=== PATIENT | male | born 1990 | race Caucasian/White ===

== ENCOUNTER 2016-10-01 18:13 | Emergency (ER) | payer MEDICAID, OTHER ==
[~2016-10-01] VITALS: Ht 177.8 cm; Wt 75.0 kg
[2016-10-01 18:14] VITALS: BP 135/84; PULSE 102; RESP 20; TEMP 98.5; O2SAT 97
[2016-10-01] MEDS ORDERED: SODIUM CHLORID 0.9% 500 ML INJ 500 ML IV ONE (19:30)
[2016-10-01] MEDS ORDERED: SODIUM CHLORIDE 0.9% FLUSH 10 ML FLUSH IVF PRN (19:30)
--- NOTE | 2016-10-01 19:34 | PD ---
HPI Chief Complaint: Chest Pain Time Seen by Provider: 19:32 Travel History International Travel<30 days: No Contact w/Intl Traveler<30days: No Traveled to known affect area: No History of Present Illness HPI Patient is a 26-year-old male presenting to emergency department evaluation of chest pain. Patient states pain started 2 days ago, it's midsternal and is worse with deep inspiration. He states that he missed a dose of methadone yesterday and made the pain worse. He felt tired and occasionally short of breath. He denies any fever, chills, nausea, vomiting, abdominal pain. He states that he's been sleeping a lot as well. He does report a dry cough. [facility] Past Medical History Medical History: Denies Significant Hx Social History Alcohol Use: No Tobacco Use: Yes Substance Use: No Allergies-Medications (Allergen,Severity, Reaction): Coded Allergies: No Known Allergies (Unverified , 10/01/16) Review of Systems Except as stated in HPI: all other systems reviewed are Neg General / Constitutional: Positive: Other (fatigue) Cardiovascular: Positive: Chest Pain or Discomfort Respiratory: Positive: Cough, Shortness of Breath Physical Exam Narrative GENERAL: Well-developed, well-nourished male, resting comfortably in no acute distress SKIN: Focused skin assessment warm/dry. HEAD: Atraumatic. Normocephalic. EYES: Pupils equal and round. No scleral icterus. No injection or drainage. ENT: No nasal bleeding or discharge. Mucous membranes pink and moist. NECK: Trachea midline. No JVD. CARDIOVASCULAR: Regular rate and rhythm. No murmur appreciated. RESPIRATORY: No accessory muscle use. Clear to auscultation. Breath sounds equal bilaterally. GASTROINTESTINAL: Abdomen soft, non-tender, nondistended. Hepatic and splenic margins not palpable. MUSCULOSKELETAL: No obvious deformities. No clubbing. No cyanosis. No edema. NEUROLOGICAL: Awake and alert. No obvious cranial nerve deficits. Motor grossly within normal limits. Normal speech. PSYCHIATRIC: Appropriate mood and affect; insight and judgment normal. Data Data Last Documented VS Vital Signs Date Time Temp Pulse Resp B/P Pulse Ox O2 Delivery O2 Flow Rate FiO2 10/01/16 20:06 Room Air 10/01/16 20:06 99 10/01/16 18:14 98.5 102 20 135/84 Orders Electrocardiogram (10/01/16 19:24) Ckmb (Isoenzyme) Profile (10/01/16 19:24) Complete Blood Count With Diff (10/01/16 19:24) Comprehensive Metabolic Panel (10/01/16 19:24) Magnesium (Mg) (10/01/16 19:24) Prothrombin Time / Inr (Pt) (10/01/16 19:24) Act Partial Throm Time (Ptt) (10/01/16 19:24) Troponin I (10/01/16 19:24) Chest, Single Ap (10/01/16 19:24) Ecg Monitoring (10/01/16 19:24) Iv Access Insert/Monitor (10/01/16 19:24) Oximetry (10/01/16 19:24) Sodium Chloride 0.9% Flush (Ns Flush) (10/01/16 19:30) Sodium Chlorid 0.9% 500 Ml Inj (Ns 500 M (10/01/16 19:30) D-Dimer (10/01/16 19:34) CKMB (10/01/16 19:35) CKMB% (10/01/16 19:35) Labs Laboratory Tests Test 10/01/16 19:35 White Blood Count 7.1 TH/MM3 Red Blood Count 4.94 MIL/MM3 Hemoglobin 14.4 GM/DL Hematocrit 41.7 % Mean Corpuscular Volume 84.5 FL Mean Corpuscular Hemoglobin 29.1 PG Mean Corpuscular Hemoglobin 34.4 % Concent Red Cell Distribution Width 12.8 % Platelet Count 220 TH/MM3 Mean Platelet Volume 7.7 FL Neutrophils (%) (Auto) 63.7 % Lymphocytes (%) (Auto) 25.3 % Monocytes (%) (Auto) 5.7 % Eosinophils (%) (Auto) 4.9 % Basophils (%) (Auto) 0.4 % Neutrophils # (Auto) 4.5 TH/MM3 Lymphocytes # (Auto) 1.8 TH/MM3 Monocytes # (Auto) 0.4 TH/MM3 Eosinophils # (Auto) 0.3 TH/MM3 Basophils # (Auto) 0.0 TH/MM3 CBC Comment DIFF FINAL Differential Comment Prothrombin Time 11.0 SEC Prothromb Time International 1.0 RATIO Ratio Activated Partial 28.5 SEC Thromboplast Time Sodium Level 138 MEQ/L Potassium Level 4.0 MEQ/L Chloride Level 99 MEQ/L Carbon Dioxide Level 31.3 MEQ/L Anion Gap 8 MEQ/L Blood Urea Nitrogen 13 MG/DL Creatinine 0.87 MG/DL Estimat Glomerular Filtration 104 ML/MIN Rate Random Glucose 89 MG/DL Calcium Level 9.1 MG/DL Magnesium Level 2.1 MG/DL Total Bilirubin 0.5 MG/DL Aspartate Amino Transf 20 U/L (AST/SGOT) Alanine Aminotransferase 27 U/L (ALT/SGPT) Alkaline Phosphatase 93 U/L Total Creatine Kinase 136 U/L Troponin I 0.03 NG/ML Total Protein 8.1 GM/DL Albumin 4.0 GM/DL MDM Medical Decision Making Medical Screen Exam Complete: Yes Emergency Medical Condition: Yes Interpretation(s) Last Impressions Chest X-Ray 10/01/161923 Signed Impressions: Service Date/Time: Saturday, October 01, 2016 19:33 - CONCLUSION: No acute disease. Darrel Man Jr., MD Laboratory Tests Test 10/01/16 19:35 White Blood Count 7.1 TH/MM3 Red Blood Count 4.94 MIL/MM3 Hemoglobin 14.4 GM/DL Hematocrit 41.7 % Mean Corpuscular Volume 84.5 FL Mean Corpuscular Hemoglobin 29.1 PG Mean Corpuscular Hemoglobin 34.4 % Concent Red Cell Distribution Width 12.8 % Platelet Count 220 TH/MM3 Mean Platelet Volume 7.7 FL Neutrophils (%) (Auto) 63.7 % Lymphocytes (%) (Auto) 25.3 % Monocytes (%) (Auto) 5.7 % Eosinophils (%) (Auto) 4.9 % Basophils (%) (Auto) 0.4 % Neutrophils # (Auto) 4.5 TH/MM3 Lymphocytes # (Auto) 1.8 TH/MM3 Monocytes # (Auto) 0.4 TH/MM3 Eosinophils # (Auto) 0.3 TH/MM3 Basophils # (Auto) 0.0 TH/MM3 CBC Comment DIFF FINAL Differential Comment Prothrombin Time 11.0 SEC Prothromb Time International 1.0 RATIO Ratio Activated Partial 28.5 SEC Thromboplast Time Sodium Level 138 MEQ/L Potassium Level 4.0 MEQ/L Chloride Level 99 MEQ/L Carbon Dioxide Level 31.3 MEQ/L Anion Gap 8 MEQ/L Blood Urea Nitrogen 13 MG/DL Creatinine 0.87 MG/DL Estimat Glomerular Filtration 104 ML/MIN Rate Random Glucose 89 MG/DL Calcium Level 9.1 MG/DL Magnesium Level 2.1 MG/DL Total Bilirubin 0.5 MG/DL Aspartate Amino Transf 20 U/L (AST/SGOT) Alanine Aminotransferase 27 U/L (ALT/SGPT) Alkaline Phosphatase 93 U/L Total Creatine Kinase 136 U/L Troponin I 0.03 NG/ML Total Protein 8.1 GM/DL Albumin 4.0 GM/DL Vital Signs Date Time Temp Pulse Resp B/P Pulse Ox O2 Delivery O2 Flow Rate FiO2 10/01/16 18:14 98.5 102 20 135/84 97 Room Air Differential Diagnosis Acute coronary syndrome versus substance abuse versus pleurisy versus pulmonary embolism versus other Narrative Course Patient is a 26-year-old male presenting to emergency evaluation of chest pain and tightness in 2 days ago. Patient initially did not admit to using any drugs , however the later admitted to using cocaine yesterday. EKG shows sinus bradycardia Chest x-ray shows no acute disease CBC is unremarkable Chemistry is unremarkable Troponin is 0.03 D-dimer is still pending. Care of patient transferred to my attending physician who will determine patient 's disposition. Bhumika Flynn October 01, 2016 19:34
--- NOTE | 2016-10-01 19:57 | RADRPT ---
EXAM DATE/TIME: 10/01/2016 19:33 [facility] COMPARISON: No previous studies available for comparison. INDICATIONS : Chest pain post cocaine usage. MEDICAL HISTORY : None. SURGICAL HISTORY : None. ENCOUNTER: Initial ACUITY: 2 days PAIN SCORE: 4/10 LOCATION: Bilateral chest FINDINGS: 2 frontal views of the chest demonstrate the lungs to be symmetrically aerated without evidence of ma ss, infiltrate or effusion. The cardiomediastinal contours are unremarkable. Osseous structures are intact. CONCLUSION: No acute disease. Darrel Man Jr., MD on October 01, 2016 at 19:55 Board Certified Radiologist. This report was verified electronically.
[2016-10-01 20:11] LABS: AUTOMATED NEUTROPHIL # 4.5 TH/MM3 (1.8-7.7); BASOPHIL % 0.4 % (0.0-2.0); EOSINOPHIL # 0.3 TH/MM3 (0-0.4); EOSINOPHIL % 4.9 % (0.0-4.0); HEMATOCRIT 41.7 % (39.0-51.0); HEMO FLAGS DIFF FINAL; LYMPH % 25.3 % (9.0-44.0); LYMPHOCYTE # 1.8 TH/MM3 (1.0-4.8); MEAN CELL VOLUME 84.5 FL (80.0-100.0); MEAN CORPUSCULAR HEMOGLOBIN 29.1 PG (27.0-34.0); MEAN CORPUSCULAR HGB CONC 34.4 % (32.0-36.0); MONO % 5.7 % (0.0-8.0); NEUT % 63.7 % (16.0-70.0); PLATELET COUNT 220 TH/MM3 (150-450); RED BLOOD COUNT 4.94 MIL/MM3 (4.50-5.90); RED CELL DISTRIBUTION WIDTH 12.8 % (11.6-17.2); WHITE BLOOD COUNT 7.1 TH/MM3 (4.0-11.0)
[2016-10-01 20:21] LABS: APTT (PATIENT) 28.5 SEC (24.3-30.1)
[2016-10-01 20:36] LABS: ANION GAP 8 MEQ/L (5-15); AST (GOT) 20 U/L (15-37); BICARBONATE 31.3 MEQ/L (21.0-32.0); BLOOD UREA NITROGEN 13 MG/DL (7-18); CHLORIDE 99 MEQ/L (98-107); GLOMERULAR FILTRATION RATE 104 ML/MIN (>89); MAGNESIUM 2.1 MG/DL (1.5-2.5); SODIUM (NA) 138 MEQ/L (136-145)
[2016-10-01 20:41] LABS: ALKALINE PHOSPHATASE 93 U/L (45-117); ALT (GPT) 27 U/L (12-78); CREATINE KINASE 136 U/L (39-308); TOTAL BILIRUBIN ADULT 0.5 MG/DL (0.2-1.0)
[2016-10-01 20:53] LABS: CKMB 2.1 NG/ML (0.5-3.6)
--- NOTE | 2016-10-01 20:56 | PD ---
Data Data Last Documented VS Vital Signs Date Time Temp Pulse Resp B/P Pulse Ox O2 Delivery O2 Flow Rate FiO2 10/01/16 21:52 98.3 96 20 128/74 99 Room Air Orders Electrocardiogram (10/01/16 19:24) Ckmb (Isoenzyme) Profile (10/01/16 19:24) Complete Blood Count With Diff (10/01/16 19:24) Comprehensive Metabolic Panel (10/01/16 19:24) Magnesium (Mg) (10/01/16 19:24) Prothrombin Time / Inr (Pt) (10/01/16 19:24) Act Partial Throm Time (Ptt) (10/01/16 19:24) Troponin I (10/01/16 19:24) Chest, Single Ap (10/01/16 19:24) Ecg Monitoring (10/01/16 19:24) Iv Access Insert/Monitor (10/01/16 19:24) Oximetry (10/01/16 19:24) Sodium Chloride 0.9% Flush (Ns Flush) (10/01/16 19:30) Sodium Chlorid 0.9% 500 Ml Inj (Ns 500 M (10/01/16 19:30) D-Dimer (10/01/16 19:34) CKMB (10/01/16 19:35) CKMB% (10/01/16 19:35) Labs Laboratory Tests Test 10/01/16 19:35 White Blood Count 7.1 TH/MM3 Red Blood Count 4.94 MIL/MM3 Hemoglobin 14.4 GM/DL Hematocrit 41.7 % Mean Corpuscular Volume 84.5 FL Mean Corpuscular Hemoglobin 29.1 PG Mean Corpuscular Hemoglobin 34.4 % Concent Red Cell Distribution Width 12.8 % Platelet Count 220 TH/MM3 Mean Platelet Volume 7.7 FL Neutrophils (%) (Auto) 63.7 % Lymphocytes (%) (Auto) 25.3 % Monocytes (%) (Auto) 5.7 % Eosinophils (%) (Auto) 4.9 % Basophils (%) (Auto) 0.4 % Neutrophils # (Auto) 4.5 TH/MM3 Lymphocytes # (Auto) 1.8 TH/MM3 Monocytes # (Auto) 0.4 TH/MM3 Eosinophils # (Auto) 0.3 TH/MM3 Basophils # (Auto) 0.0 TH/MM3 CBC Comment DIFF FINAL Differential Comment Prothrombin Time 11.0 SEC Prothromb Time International 1.0 RATIO Ratio Activated Partial 28.5 SEC Thromboplast Time D-Dimer Quantitative (PE/DVT) 0.22 MG/L FEU Sodium Level 138 MEQ/L Potassium Level 4.0 MEQ/L Chloride Level 99 MEQ/L Carbon Dioxide Level 31.3 MEQ/L Anion Gap 8 MEQ/L Blood Urea Nitrogen 13 MG/DL Creatinine 0.87 MG/DL Estimat Glomerular Filtration 104 ML/MIN Rate Random Glucose 89 MG/DL Calcium Level 9.1 MG/DL Magnesium Level 2.1 MG/DL Total Bilirubin 0.5 MG/DL Aspartate Amino Transf 20 U/L (AST/SGOT) Alanine Aminotransferase 27 U/L (ALT/SGPT) Alkaline Phosphatase 93 U/L Total Creatine Kinase 136 U/L Creatine Kinase MB 2.1 NG/ML Troponin I 0.03 NG/ML Total Protein 8.1 GM/DL Albumin 4.0 GM/DL MDM Supervised Visit with JOSUE: Yes Narrative Course Patient care assumed from Bhumika HAND at 2100. This is a 26-year-old male cocaine user and smoker presents emergency department right-sided chest pain. The patient's pain is an extreme right aspect of the chest. Highly positional and worsens on deep respiration. Initial workup including EKG troponin and d- dimer are negative. Patient revisiting is sleeping soundly with headphones on. Awakens states his pain somewhat better. Had an extensive conversation about the risks of using cocaine and cigarettes smoking on adverse health outcomes and he was encouraged to quit. At this time he is stable for discharge she is highly atypical for ACS. Discussed return to ED criteria need for follow-up with primary care physician or the [place] [facility]. Diagnosis Primary Impression: Chest pain Additional Instruction: Cocaine and cigarettes smoking cause multiple adverse health outcomes including heart attack cancers lung disease. Highly recommended you give up these habits. There are resources in the area to help including [place] act. Disposition: 01 DISCHARGE HOME Condition: Stable Chuck Jett MD October 01, 2016 20:56
[2016-10-01 21:52] VITALS: BP 128/74; PULSE 96; RESP 20; TEMP 98.3; O2SAT 99
--- NOTE | 2016-10-02 16:06 | EKG ---
Date Performed: 10/01/2016 Time Performed: 20:00:23 PTAGE: 26 years EKG: Early repolarization Within normal limits range NO PREVIOUS TRACING DOCTOR: Dante Salcido Interpretating Date/Time 10/02/2016 16:05:08
== END 2016-10-01 21:53 | disposition home or self-care (01) ==
LOC: NEPD 18:13
DX: R07.9 Chest pain, unspecified (principal); F14.10 Cocaine abuse, uncomplicated; R00.1 Bradycardia, unspecified; Z72.0 Tobacco use
CPT/HCPCS: 71010; 80053; 82550; 82552; 83735; 84484; 85025; 85379; 85610; 85730; 93005; 99285; J7040